=== PATIENT | female | born 1970 | race Caucasian/White ===

== ENCOUNTER 2024-01-01 08:41 | Day surgery (SDC) | payer BC ==
[2024-01-01] MEDS: ALPRAZolam 0.5 MG TAB PO STA (09:15)
[2024-01-01 09:17] VITALS: RESP 18; TEMP 97.6
[2024-01-01 11:02] VITALS: BP 121/74; PULSE 78
--- NOTE | 2024-01-01 11:12 | US ---
EXAMINATION TYPE: US FNA thyroid first lesion, US FNA thyroid each add lesion DATE OF EXAM: 01/01/2024 10:55 AM CLINICAL INDICATION:Female, 53 years old with history of E04.2 NONTOXIC MULTINODULAR GOITER; , thyroi d nodule. COMPARISON: None ATTENDING: Dr. Zack Butcher PROCEDURE: Informed consent was obtained. The risks and benefits of the procedure were discussed with the patien t. The site was marked. Timeout procedure was performed Ultrasound imaging demonstrates bilateral thyroid nodules. Right nodule: The patient was prepped, draped in the usual sterile fashion, and locally anesthetized with 1% lidoca ine. Five fine needle aspiration were then performed with a 25 gauge needle. Samples were sent to [facility] pathology department for further analysis. Patient tolerated the procedure without incident and wa s sent home in stable condition. Left nodule: The patient was prepped, draped in the usual sterile fashion, and locally anesthetized with 1% lidoca ine. Five fine needle aspiration were then performed with a 25 gauge needle. Samples were sent to [facility] pathology department for further analysis. Patient tolerated the procedure without incident and wa s sent home in stable condition. IMPRESSION: Successful ultrasound guided fine needle aspiration of bilateral thyroid nodules.
== END 2024-01-01 11:00 | disposition home or self-care (01) ==
LOC: RADPROMAIN 08:41
PROVIDERS: ATTEND Internal Medicine Endocrinology, Diabetes & Metabolism
DX: E04.2 Nontoxic multinodular goiter (principal)
CPT/HCPCS: 10005; 10006; 88173; 88305